=== PATIENT | male | born 1975 | race Native Hawaiian/Other Pacific Islander ===

== ENCOUNTER 2018-07-10 06:22 | Observation (INO) | payer OTHER ==
[2018-07-10] MEDS ORDERED: LACTATED RINGERS 1,000 ML IV SCH (06:49)
[2018-07-10] MEDS ORDERED: MARCAINE-EPI 0.5%-1:200,000 INFILTRATI ONE ×3 (07:16→08:20)
[2018-07-10] MEDS ORDERED: VERSED ONE ×2 (07:19→07:53)
[2018-07-10] MEDS ORDERED: NEURONTIN ONE (07:21)
--- NOTE | 2018-07-10 07:23 | Anesthesia Consultation ---
Anesthesia Consult and Med Hx Date of service: 07/10/18 - Airway Anesthetic Teeth Evaluation: Good ROM Head & Neck: Adequate Mental/Hyoid Distance: Adequate Mallampati Class: Class II Intubation Access Assessment: Probably Good - Pulmonary Exam CTA: Yes - Cardiac Exam Cardiac Exam: RRR - Pre-Operative Health Status ASA Pre-Surgery Classification: ASA2 Proposed Anesthetic Plan: General - Central Nervous System Hx Psychiatric Problems: No - Other Systems Hx Alcohol Use: No Hx Substance Use: No Hx Cancer: No
--- NOTE | 2018-07-10 07:24 | Anesthesia Day of Surgery ---
Anesthesia Day of Surgery - Day of Surgery Patient Examined: Yes Patient H&P Reviewed: Yes Patient is NPO: Yes Beta Blockers: No Cardiac Clearance: No Pulmonary Clearance: No Bandar's Test: N/A
[2018-07-10] MEDS ORDERED: ZOFRAN IV PRN (07:25)
[2018-07-10] MEDS ORDERED: DIPRIVAN 10 MG/ML IV ONE (07:41)
[2018-07-10] MEDS ORDERED: SUBLIMAZE ONE (07:42)
[2018-07-10] MEDS ORDERED: ZEMURON IV ONE (07:53)
[2018-07-10] MEDS ORDERED: ZOFRAN ONE (07:53)
[2018-07-10] MEDS ORDERED: QUELICIN ONE (07:53)
[2018-07-10] MEDS ORDERED: ANCEF/STERILE WATER 2 GM/20 ML 2 GM/20 ML SYRINGE IV SCH (08:00)
[2018-07-10] MEDS ORDERED: NEURONTIN PO NR (08:00)
[2018-07-10] MEDS ORDERED: VERSED IV NR (08:00)
[2018-07-10] MEDS ORDERED: NACL 0.9% IR ONE (08:20)
[2018-07-10] MEDS ORDERED: PERCOCET 5/325 PO PRN (09:40)
[2018-07-10] MEDS ORDERED: TORADOL ONE (09:43)
[2018-07-10] MEDS ORDERED: BLOXIVERZ ONE (09:43)
[2018-07-10] MEDS: DILAUDID IV PRN ×2 (10:30→10:45)
--- NOTE | 2018-07-10 10:47 | Operative Report ---
PREOPERATIVE DIAGNOSIS: Very large nonreducible left scrotal hernia. POSTOPERATIVE DIAGNOSIS: Very large nonreducible left scrotal hernia. PROCEDURE: Open left inguinal hernia repair with mesh. SURGEON: Juwan Flowers MD ANESTHESIA: General. ESTIMATED BLOOD LOSS: Minimal. DRAINS: None. COMPLICATIONS: None. Case was difficult due to the size of the hernia. DESCRIPTION OF PROCEDURE: The patient was taken to the operating room and placed in a steep Trendelenburg position after full anesthesia. Attempts were made to manually try to reduce the hernia under general anesthesia, but again, this proved unsuccessful. The patient was then prepped and draped in usual sterile fashion including the entire scrotum. Incision was made using his landmarks, anterosuperior iliac spine and the pubic tubercle. Incision was carried down through the external oblique fascia. External oblique fascia was transected down to the external ring. A very large hernia sac involving the colon and omentum was encountered. The floor itself was essentially obliterated. The fascia was continued to be slowly cut with Metzenbaum scissors down to the pubic tubercle until eventually the area was able to be somewhat loosened and freed. Manual manipulation of the testicle was used on one side as it was pushed up and on the other side, we pulled on the large hernia sac. Eventually, the omentum and colon were able to be brought out and reduced back into the abdominal cavity. The testicle was once again placed in the scrotal sac. The area was then irrigated copiously and dried. Checked for hemostasis and noted to be dry. The cord was then identified and isolated with a Barbara drain. As previously mentioned, the floor itself was basically nonexistent. A large keyhole Marlex mesh was then used to reconstruct the inguinal canal floor. The mesh was secured medially to the transversalis fascia and laterally to the iliopubic tract. Tackers were also used to tack the mesh inferiorly to the pubic tubercle and distal Agustín ligament. Subsequent mesh was then also on laid over this area to reinforce it. The keyhole was then closed above the internal ring at the site of the cord. The entire area was then irrigated copiously and dried. Checked for hemostasis and noted to be dry. All cord structures were noted to be intact. The testicles once again confirmed in the scrotal sac. The floor was palpated and noted to be well reconstructed. No other fascial defects noted. External oblique fascia was then closed over the cord with running 3-0 Vicryl suture. Subcutaneous tissues were irrigated and skin closed with osmany. A 0.5% Marcaine was infiltrated over the fascia, subcutaneous, and skin for postop pain relief. An ilioinguinal nerve block was also performed. The patient tolerated the procedure well and left OR in stable condition. [facility]# [id number] DILIP/MARY
[2018-07-10] MEDS ORDERED: DILAUDID ONE (10:50)
[2018-07-10] MEDS: D5W/0.45% NACL/KCL 20 MEQ 20 MEQ/1,000 ML BAG IV SCH ×2 (11:45→19:27)
[2018-07-10] MEDS: MORPHINE IV PRN ×3 (12:39→20:35)
[2018-07-10] MEDS: ZOFRAN IV PRN (12:40)
[2018-07-10] MEDS: ANCEF/NS 1 GM/50 ML 1 GM/50 ML BAG IV SCH (16:59)
[2018-07-11] MEDS: MORPHINE IV PRN ×2 (02:58→09:09)
[2018-07-11] MEDS: D5W/0.45% NACL/KCL 20 MEQ 20 MEQ/1,000 ML BAG IV SCH (02:58)
[2018-07-11] MEDS: ANCEF/NS 1 GM/50 ML 1 GM/50 ML BAG IV SCH (03:08)
[2018-07-11 08:06] LABS: Basophils % (Auto) 0.1 % (0.0-1.8); Eosinophils % (Auto) 0.1 % (0.0-4.3); Hemoglobin 14.4 gm/dl (11.8-15.2); Lymphocytes # (Auto) 2.4 K/mm3 (1.2-5.4); Lymphocytes % (Auto) 21.4 % (13.4-35.0); Mean Corpuscular HGB Conc 34 % (32-34); Mean Corpuscular Volume 90 fl (84-94); Monocytes % (Auto) 9.2 % (0.0-7.3); Platelet Count 211 K/mm3 (140-440); Red Blood Count 4.65 M/mm3 (3.65-5.03); Red Cell Distribution Width 13.5 % (13.2-15.2)
[2018-07-11] MEDS: ZOFRAN IV PRN (09:09)
--- NOTE | 2018-07-11 12:31 | Progress Note ---
Assessment and Plan POD # 1 Pt feeling well. voided well. josh cl liq diet Op site clean and dry. scrotum neg edema or tenderness stable reg diet d/c today if diet josh rto I wk Selected Entries 07/11/18 07/11/18 04:10 07:14 Pulse Rate 81 Respiratory 18 Rate Blood Pressure 139/64 Laboratory Tests 07/11/18 07:33 WBC 11.1 H Hgb 14.4 Hct 42.0 Objective Vital Signs - 12hr 07/11/18 07/11/18 07/11/18 02:58 03:28 03:34 Temperature Pulse Rate 80 Respiratory 17 16 Rate Respiratory Rate [Left Groin] Blood Pressure 121/73 Blood Pressure [Left] O2 Sat by Pulse 93 Oximetry 07/11/18 07/11/18 07/11/18 04:10 07:14 07:19 Temperature 98.2 F 98.9 F Pulse Rate 87 81 Respiratory 18 20 Rate Respiratory Rate [Left Groin] Blood Pressure 139/64 Blood Pressure 121/73 [Left] O2 Sat by Pulse 94 95 Oximetry 07/11/18 07/11/18 07/11/18 09:09 09:39 10:00 Temperature Pulse Rate Respiratory 20 20 Rate Respiratory 20 Rate [Left Groin] Blood Pressure Blood Pressure [Left] O2 Sat by Pulse Oximetry 07/11/18 10:16 Temperature Pulse Rate Respiratory 20 Rate Respiratory Rate [Left Groin] Blood Pressure Blood Pressure [Left] O2 Sat by Pulse Oximetry - Labs 07/11/18 07:33
--- NOTE | 2018-07-11 12:33 | Discharge Summary ---
Short Stay Discharge Plan Activity: other (august d/c today if diet josh. high fiber solid diet at home. no lifting or straining x 3 wks. keep dressings dry x 5 days. scrotal support x 3 days. ) Diet: other Wound: keep clean and dry Additional Instructions: aleve I po q 6-8 hrs prn for breakthrough pain. surfak I po q am x 3 Follow up with: ARELY ALAN MD [Staff Physician] - 7 Days
[2018-07-11 13:21] VITALS: BP 129/77
--- NOTE | 2018-07-11 14:50 | Discharge Summary ---
DISCHARGE DIAGNOSIS: Large left scrotal hernia. PROCEDURE WHILE IN HOSPITAL: Open left inguinal hernia repair with mesh. HOSPITAL COURSE: The patient is a healthy 42-year-old gentleman who presented to the office with chief complaint of a tender, nonreducible large left scrotal hernia. Physical exam confirmed the above. At this time, the patient was admitted for open left inguinal hernia repair, which he underwent without incident. His postoperative course has been essentially unremarkable. Currently, the patient is postoperative day #1, afebrile and feeling well. He has remained afebrile throughout the night and has voided without incident. He also has been tolerating clear liquid diet without complaints. The patient's OpSite is clean and dry. Scrotum shows no evidence of edema or tenderness. The patient will thus be advanced to solid high-fiber diet this morning and will tentatively be discharged today if his diet is well tolerated. The patient has been instructed to call me immediately if he has any increasing pain, nausea, vomiting, or fever. The patient has been also instructed to do no heavy lifting or straining for the next 3-4 weeks and to keep his dressings dry for another 4 days. Also, he will continue wearing his scrotal support for another 3-4 days and stay on a high fiber diet as well as stool softeners. The patient will be followed up in the office in approximately 1 week. JOB# [id number] DILIP/MARY
== END 2018-07-11 15:15 | disposition home or self-care (01) ==
LOC: OR 06:22 → 3B-SURG 09:40 → INTOOBSV 09:40
PROVIDERS: ADMIT Surgery; ATTEND Surgery
DX: K40.90 Unilateral inguinal hernia, without obstruction or gangrene, not specified as recurrent (principal)
CPT/HCPCS: 36415; 49505; 85025; 96365; 96366; 96375; 96376; C1781; G0378; J0330; J0690; J1170; J1885; J2250; J2270; J2405; J2704; J2710; J3010; J7120

== ENCOUNTER 2018-08-28 09:42 | Outpatient (CLI) | payer OTHER ==
--- NOTE | 2018-08-28 15:25 | Ultrasound Report ---
ULTRASOUND TESTICULAR DOPPLER COMPLETE History: Unilateral inguinal hernia without obstruction or gangrene. Comparison: None. Technique: Trans-scrotal ultrasound with spectral doppler interrogation. Findings: Both testes and epididymides are normal size, contour and echotexture. No hydrocele or varicocele. No mass or pathologic calcifications. Doppler interrogation depicts symmetric arterial flow to both testes. There is abnormal mixed echogenicity substance within the left inguinal canal and left side of the scrotal sac lateral to the left testicle. This substance is mixed echogenicity and similar to fat. There is no evidence for peristalsing bowel loops within this structure. This presumably represents a left inguinal hernia containing fat only. IMPRESSION: Left inguinal hernia containing mesenteric fat. See above.
== END 2018-08-28 09:43 | disposition home or self-care (01) ==
LOC: US 09:42
PROVIDERS: ATTEND Surgery
DX: K40.90 Unilateral inguinal hernia, without obstruction or gangrene, not specified as recurrent (principal); N43.3 Hydrocele, unspecified
CPT/HCPCS: 93975

== ENCOUNTER 2018-09-20 06:29 | Outpatient (CLI) | payer OTHER ==
[2018-09-20 07:31] LABS: Blood Urea Nitrogen 15 mg/dL (9-20)
--- NOTE | 2018-09-20 13:26 | Cat Scan Report ---
CT PELVIS WITH CONTRAST HISTORY: Left groin recurrent hernia, huge scrotal hernia, new since postop period TECHNIQUE: Helical CT following IV contrast and oral contrast. Sagittal and coronal reformatted images. FINDINGS: Ultrasound testicular dated 08/28/18 was again reviewed. Surgical changes are noted in the left inguinal region consistent with left inguinal hernia repair. No convincing recurrent hernia is visualized on CT as suggested on recent ultrasound. There does appear to be moderate circumferential thickening of the left spermatic cord compared to the right side. The scrotal sac appears symmetric and unremarkable. The previously described or assumed left inguinal hernia containing fat on ultrasound is not identified on CT. The visualized bowel loops in the pelvis are unremarkable. The bladder and distal ureters are unremarkable. Normal prostate. The vascular structures and bony structures of the pelvis are unremarkable. IMPRESSION: No recurrent hernia is visualized as described above. The left spermatic cord does appear slightly thickened compared to the right side which presumably represents postoperative changes.
== END 2018-09-20 06:30 | disposition home or self-care (01) ==
LOC: CT 06:29
PROVIDERS: ATTEND Surgery
DX: K40.91 Unilateral inguinal hernia, without obstruction or gangrene, recurrent (principal)
CPT/HCPCS: 36415; 72193; 82565; 84520; Q9967